=== PATIENT | male | born 1990 | race Caucasian/White ===

== ENCOUNTER 2016-10-22 20:06 | Emergency (ER) | payer OTHER ==
[~2016-10-22] VITALS: Ht 165.1 cm; Wt 61.9 kg
[2016-10-22 20:17] VITALS: BP 127/67
[2016-10-22] MEDS ORDERED: IBUPROFEN 600 MG TABLET PO ONE ×2 (22:30→22:36)
== END 2016-10-22 23:21 | disposition home or self-care (01) ==
LOC: ER 20:06
DX: J20.9 Acute bronchitis, unspecified (principal); Z88.0 Allergy status to penicillin; F17.200 Nicotine dependence, unspecified, uncomplicated
CPT/HCPCS: 71010-TC; 71020-TC; A4606; Z7610

== ENCOUNTER 2016-11-23 04:31 | Emergency (ER) | payer OTHER ==
[~2016-11-23] VITALS: Ht 165.1 cm; Wt 59.0 kg
[2016-11-23 04:33] VITALS: BP 117/68
== END 2016-11-23 05:09 | disposition home or self-care (01) ==
LOC: ER 04:35
DX: J06.9 Acute upper respiratory infection, unspecified (principal); F17.210 Nicotine dependence, cigarettes, uncomplicated; I10 Essential (primary) hypertension; Z59.0 Homelessness; Z88.0 Allergy status to penicillin
CPT/HCPCS: 99281; A4606; Z7610; Z7502